=== PATIENT | female | born 1965 | race Caucasian/White ===

== ENCOUNTER 2016-09-27 14:41 | Observation (INO) ==
[2016-09-27] MEDS ORDERED: Aspirin 81 MG TAB.CHEW PO ONE (15:04)
[2016-09-27] MEDS ORDERED: 0.9 % Sodium Chloride 500 ML IVC ONE (15:04)
--- NOTE | 2016-09-27 15:12 | Emergency Department Note ---
START Narrative - START START: I examined this patient and my medical decision-making was reviewed with the VALET/PA/Advanced Practice Nurse/Resident Physician. I agree with the documented findings, disposition and treatment plan as described except to the extent set forth below. ED attending note: Patient seen with emergency medicine resident Dr. BERMUDEZ. Please see a copy of his note for details of the H&P, evaluation, management and disposition of this patient. We independently had eypt-[id number] contact with the patient Briefly: A 51-year-old female several months of chest pain worked up just yesterday with a nuclear stress test. Results are still pending. EKG shows no acute ischemic changes. Physical examination is benign. We will review the stress test results in the computer and repeat screening labs here. Disposition pending.
[2016-09-27] MEDS ORDERED: Nitroglycerin 25 MG/250 ML INFUS..BTL IVC SCH (15:15)
[2016-09-27] MEDS ORDERED: *HR* LORazepam 2 MG/ML VIAL IVP ONE (15:19)
--- NOTE | 2016-09-27 15:22 | Emergency Department Note ---
Disposition Clinical Impression: Unstable angina Chest pain Qualifiers: Chest pain type: unspecified Qualified Code(s): R07.9 - Chest pain, unspecified Disposition: Admitted As Inpatient Condition: Fair Time of Disposition: 17:19 Chest Pain HPI - General Chief Complaint: ED Chest Pain Stated Complaint: chest pains Time Seen by Provider: 09/27/16 14:58 Source: patient Vital Signs Reviewed: Yes Nursing Notes Reviewed: Yes - History of Present Illness HPI Narrative: This is a 51-year-old female who presents with chest pain times this morning unknown time of onset, patient fell back asleep after symptoms resolved. Unknown time of duration. Patient states it resolved on her own and she was able to go back to sleep. Patient states she is a prior history of recent chronic chest pain that has been under evaluation by Dr. Solis of cardiology and recently received a stress test 1 day ago. Patient has follow-up for stress test in 4 days area patient is directed to come to the ED if she had any change in her chest pain. Patient's chest pain changed with the addition of chest pressure and increased intensity that occurred today. Patient states that she has had about 20 outs of chest pain that lasted about 40 seconds. Patient states his radiation of her chest pressure and pain intermittently to her left arm and through to her back. She denies alcohol use, illicit drug use, patient quit smoking 7 months ago. Patient has a history of diabetes, hyperlipidemia, hypertension Severity scale (1-10): 8 - Related Data Home Medications Medication Instructions Recorded Confirmed Aspirin [Lo-Dose Aspirin EC] 81 mg PO DAILY 09/27/16 09/27/16 Atorvastatin [Lipitor] 40 mg PO HS 09/27/16 09/27/16 Esomeprazole Magnesium [Nexium] 40 mg PO DAILY 09/27/16 09/27/16 Insulin Degludec [Tresiba 134 unit SQ QAM 09/27/16 09/27/16 Flextouch U-100] Lisinopril-HCTZ 10-12.5 [Prinzide 1 tab PO DAILY 09/27/16 09/27/16 10-12.5] Metformin HCl [Glucophage] 1,000 mg PO DAILY 09/27/16 09/27/16 Paroxetine HCl [Paxil] 10 mg PO QPM 09/27/16 09/27/16 Pioglitazone [Actos] 45 mg PO DAILY 09/27/16 09/27/16 Allergies Allergy/AdvReac Type Severity Reaction Status Date / Time clarithromycin [From Biaxin] Allergy Swelling Verified 09/27/16 14:45 of Lip/Tongue/Throat Review of Systems: Patient denies fevers, chills, nausea, vomiting, diarrhea, lightheadedness, dizziness. Patient admits to facial flushing, and intermittent cough nonproductive All systems ED: reviewed and negative except as stated. Review of Systems: As Per HPI Chest Pain PMH - Past Medical History Medical history: Reports: diabetes, GERD, hyperlipidemia, hypertension Surgical history: Reports: cholecystectomy, hysterectomy, other Psychiatric history: Reports: no psych history RN PSYCH history: Reports: bilateral tubal ligation - Social History Smoking Status: Current every day smoker Alcohol use: Reports: none Drug use: Reports: none Physical Exam Vital Signs Temperature 98.1 F 09/27/16 14:43 Pulse Rate 99 09/27/16 14:43 Respiratory Rate 18 09/27/16 14:43 Blood Pressure 149/84 09/27/16 14:43 O2 Sat by Pulse Oximetry 98 09/27/16 14:43 Temperature 98.1 F 09/27/16 14:43 Pulse Rate 99 09/27/16 14:43 Respiratory Rate 18 09/27/16 14:43 Blood Pressure 149/84 09/27/16 14:43 O2 Sat by Pulse Oximetry 98 09/27/16 14:43 Oxygen Delivery Oxygen Delivery Room Air -General Appearance: Patient is a 50-year-old female who is alert and oriented times and in no acute distress. Patient is emotional and tearful throughout exam secondary to unknowns about chest pain -Neurological exam: Cranial nerves II-12 intact, no focal deficits observed, strength equal 5/5 bilaterally in upper and lower extremities, Negative loss of sensation - Head Head exam: atraumatic, normocephalic, normal inspection - Eye Eye exam: Present: normal appearance, PERRL, EOMI, negative for scleral icterus negative for conjunctival pallor - ENT ENT exam: normal exam, normal oropharynx, mucous membranes moist - Neck Neck exam: Present: normal inspection, full ROM, trachea midline, negative JVD - Chest Chest inspection: Present: Patient has bilateral equal rise and fall of chest wall. Anterior chest wall tender to palpation - Respiratory Respiratory exam: Clear to auscultation bilaterally without wheezes rales or rhonchi Cardiovascular Cardiovascular exam: Present: regular rate, normal rhythm, normal heart sounds, without murmurs rubs or gallops. - Abdominal Exam Abdominal exam: Present: soft, nondistended, Non-Tender light and deep palpation in all quadrants. Bowel sounds normoactive throughout all 4 quadrants. Negative for hyper or hyperresonance. - Extremities Exam Extremities exam: Present: normal inspection, full ROM, pulses equal regular bilaterally at the radials and dorsal pedal pulses no pitting edema or edema of lower extremities. - Back Exam Back exam: Present: normal inspection, full ROM. Absent: CVA tenderness (R), CVA tenderness (L) - Skin Skin exam: Present: warm, dry, intact, normal color - General General appearance: alert, in no apparent distress Course - Reevaluation(s) Reevaluation #1: Patient seen and examined. ACS workup initiated. Ativan given per patient's anxiety. Aspirin 325 mg, nitroglycerin ordered sublingual. We will reassess Time: 15:25 Reevaluation #2: Recheck patient's blood pressure currently 94/60. We will hold nitroglycerin. Patient states her pain has eased up. Time: 16:05 - Consultations Consultation #1: Dr. Montiel the hospitalist has accepted pt for admission Time: 17:17 Vital Signs Temperature 98.1 F 09/27/16 14:43 Pulse Rate 99 09/27/16 14:43 Respiratory Rate 18 09/27/16 14:43 Blood Pressure 149/84 09/27/16 14:43 O2 Sat by Pulse Oximetry 98 09/27/16 14:43 Temperature 98.2 F 09/27/16 18:34 Pulse Rate 74 09/27/16 18:34 Respiratory Rate 19 09/27/16 18:34 Blood Pressure 105/58 09/27/16 18:34 O2 Sat by Pulse Oximetry 97 09/27/16 18:34 Oxygen Delivery Oxygen Delivery Room Air Chest Pain - MDM Narrative Medical decision making narrative: Patient's history and current pain symptoms concerning for possible ACS/DC, PE, aortic dissection, pleurisy, esophageal rupture (less likely), other things like pneumonia some form of chest wall chondral or muscular abnormality. Patient has been treated for that in the past so also less likely at this time. Patient's heart score for but has negative chest x-ray, patient's labs were unremarkable and has a negative troponin. I discussed the patient's case with Dr. Solis of cardiology who stated she recommends admitting patient to medicine and they will see patient tomorrow. Patient did not receive nitroglycerin trial secondary to drop in blood pressure to 90 systolic. Patient's blood pressure on reexamination did come back up to 101/43. Patient's pain at last check was 2/10. Patient is otherwise doing well. She did receive Ativan for anxiety now resolved. Patient is also receive fluid bolus of 500 mL IV Patient was accepted for admission by hospitalist Dr. Montiel and patient understands and agrees to treatment plan for admission - Medical Records Medical records reviewed: Yes I reviewed the patient's medical records. Chest S 1 day ago shows a good EF of 73% and some perfusion defects - Lab Data Lab results reviewed: Yes I reviewed the patient's lab results. Lab results narrative: Short CBC 09/27/16 Range/Units 15:45 WBC 9.1 (4.3-11.1) K/mcL Hgb 12.0 (11.5-15.4) g/dL Hct 38.4 (35.3-44.9) % Plt Count 280 (140-400) K/mcL Neutrophils # 5.4 (1.6-8.9) K/mcL BMP 09/27/16 Range/Units 15:45 Sodium 138 (136-145) mEq/L Potassium 4.1 (3.5-4.5) mEq/L Chloride 105 (98-109) mEq/L Carbon Dioxide 23 (19-29) mEq/L BUN 20 (7-20) mg/dL Creatinine 0.80 (0.57-1.11) mg/dL Glucose 114 H (70-99) mg/dL Calcium 9.4 (8.6-10.8) mg/dL Cardiac Enzymes 09/27/16 Range/Units 15:45 Troponin I 0.00 (0-0.03) ng/mL Result diagrams: 09/27/16 15:45 09/27/16 15:45 Lab Results 09/27/16 09/27/16 09/27/16 Range/Units 15:45 15:45 15:45 WBC 9.1 (4.3-11.1) K/mcL RBC 4.41 (3.82-4.97) M/mcL Hgb 12.0 (11.5-15.4) g/dL Hct 38.4 (35.3-44.9) % MCV 87.1 (83.0-100.0) fL MCH 27.2 L (28.0-33.3) pg MCHC 31.3 L (31.6-35.5) g/dL RDW 13.9 (11.5-14.5) % Plt Count 280 (140-400) K/mcL MPV 11.1 (9.4-12.4) fL Immature Gran % 0.6 (0-4) % Seg Neutrophils % 59.0 % Lymphocytes % 25.2 % Monocytes % 13.1 % Eosinophils % 1.5 % Basophils % 0.6 % Neutrophils # 5.4 (1.6-8.9) K/mcL Lymphocytes # 2.3 (0.6-4.6) K/mcL Monocytes # 1.2 (0.0-1.3) K/mcL Eosinophils # 0.1 (0.0-0.6) K/mcL Basophils # 0.1 (0.0-0.2) K/mcL PT 10.7 (9.4-12.1) Seconds INR 1.0 APTT 26.5 (26.0-36.0) Seconds Sodium 138 (136-145) mEq/L Potassium 4.1 (3.5-4.5) mEq/L Chloride 105 (98-109) mEq/L Carbon Dioxide 23 (19-29) mEq/L BUN 20 (7-20) mg/dL Creatinine 0.80 (0.57-1.11) mg/dL Est GFR ( Amer) > 60 (> 60) Est GFR (Non-Af Amer) > 60 (> 60) BUN/Creatinine Ratio 25 (6-26) Glucose 114 H (70-99) mg/dL Calculated Osmolality 289 (280-300) Calcium 9.4 (8.6-10.8) mg/dL Troponin I (0-0.03) ng/mL 09/27/16 Range/Units 15:45 WBC (4.3-11.1) K/mcL RBC (3.82-4.97) M/mcL Hgb (11.5-15.4) g/dL Hct (35.3-44.9) % MCV (83.0-100.0) fL MCH (28.0-33.3) pg MCHC (31.6-35.5) g/dL RDW (11.5-14.5) % Plt Count (140-400) K/mcL MPV (9.4-12.4) fL Immature Gran % (0-4) % Seg Neutrophils % % Lymphocytes % % Monocytes % % Eosinophils % % Basophils % % Neutrophils # (1.6-8.9) K/mcL Lymphocytes # (0.6-4.6) K/mcL Monocytes # (0.0-1.3) K/mcL Eosinophils # (0.0-0.6) K/mcL Basophils # (0.0-0.2) K/mcL PT (9.4-12.1) Seconds INR APTT (26.0-36.0) Seconds Sodium (136-145) mEq/L Potassium (3.5-4.5) mEq/L Chloride (98-109) mEq/L Carbon Dioxide (19-29) mEq/L BUN (7-20) mg/dL Creatinine (0.57-1.11) mg/dL Est GFR ( Amer) (> 60) Est GFR (Non-Af Amer) (> 60) BUN/Creatinine Ratio (6-26) Glucose (70-99) mg/dL Calculated Osmolality (280-300) Calcium (8.6-10.8) mg/dL Troponin I 0.00 (0-0.03) ng/mL - Radiology Data Radiology results reviewed: Yes I reviewed the patient's radiology results. Chest X-Ray 09/27/16 15:05 IMPRESSION: No acute abnormality detected. D/ / Mahendra Walls MD / Mahendra Walls MD Interpreting Provider: Mahendra Walls MD - EKG Data EKG attestation: Yes I reviewed and interpreted this EKG. EKG results narrative: EKG taken at 09/27/2016 at 1450 hrs. shows sinus rhythm at a rate of 89 beats minute with no acute ST elevations in any leads, looks like mild ST depression in aVF and lead 2. Previous EKG for comparison dated 08/04/2016 shows sinus rhythm with no acute ST elevations or depressions and a leads waveform and lead to looks same as today's EKG Heart Score - Score History: Moderately Suspicious EKG: Normal Age: 45-65 Risk Factors: Equal/Greater than 3 risk factor or history of atherosclerotic disease Troponin: Less than normal limit HEART Score Total: 4
[2016-09-27 16:02] LABS: Basophils # 0.1 K/mcL (0.0-0.2); Basophils % 0.6 %; Eosinophils # 0.1 K/mcL (0.0-0.6); Eosinophils % 1.5 %; Hematocrit 38.4 % (35.3-44.9); Immature Granulocytes % 0.6 % (0-4); Lymphocytes # 2.3 K/mcL (0.6-4.6); Lymphocytes % 25.2 %; Mean Corpuscular HGB Conc 31.3 g/dL (31.6-35.5); Mean Corpuscular Hemoglobin 27.2 pg (28.0-33.3); Mean Corpuscular Volume 87.1 fL (83.0-100.0); Mean Platelet Volume 11.1 fL (9.4-12.4); Monocytes # 1.2 K/mcL (0.0-1.3); Monocytes % 13.1 %; Neutrophils # 5.4 K/mcL (1.6-8.9); Platelet Count 280 K/mcL (140-400); Red Blood Count 4.41 M/mcL (3.82-4.97); Red Cell Distribution Width 13.9 % (11.5-14.5)
[2016-09-27] MEDS ORDERED: Nitroglycerin 0.4 MG TAB.SUBL SL PRN ×2 (16:05→19:03)
[2016-09-27 16:08] LABS: Prothrombin Time 10.7 Seconds (9.4-12.1)
[2016-09-27 16:10] LABS: Activated Partial Thrombo Time 26.5 Seconds (26.0-36.0)
[2016-09-27 16:15] LABS: BUN/Creatinine Ratio 25 (6-26); Blood Urea Nitrogen 20 mg/dL (7-20); Calcium 9.4 mg/dL (8.6-10.8); Carbon Dioxide 23 mEq/L (19-29); Chloride 105 mEq/L (98-109); Glucose 114 mg/dL (70-99); Osmolality,Calculated 289 (280-300); Sodium 138 mEq/L (136-145); eGFR For African Americans > 60 (> 60); eGFR For Non-African Americans > 60 (> 60)
[2016-09-27 16:16] LABS: Potassium 4.1 mEq/L (3.5-4.5)
[2016-09-27] MEDS ORDERED: D5% in Water 1,000 ML IVC PRN (18:48)
[2016-09-27] MEDS ORDERED: *HR* Dextrose 50 % in Water (Syg) 50 ML SYRINGE IVP PRN (18:51)
[2016-09-27] MEDS ORDERED: Dextrose Gel 15 GM PO PRN ×2 (18:51)
[2016-09-27] MEDS ORDERED: Naloxone 0.4 MG/ML INJ IVP PRN (18:59)
[2016-09-27] MEDS ORDERED: Furosemide 20 MG TABLET PO PRN (19:05)
--- NOTE | 2016-09-27 19:14 | Internal Med History&Physical ---
<Dylan Phillips J - Last Filed: 09/27/16 19:10> Date of Encounter: 09/27/16 Time of Encounter: 19:11 Assessment and Plan (1) Chest pain Current visit: Yes Status: Acute Patient presented to the emergency department as afternoon with increasing midsternal chest pain and new chest pressure with radiation to the left arm. EKG in the ED was normal sinus rhythm and no ST elevation however did show mild ST depression in aVF and lead 2. Troponin was negative at 0.00. Was recently admitted for chest pain nuclear stress completed negative for ischemia. Discharged yesterday and told by doctor Will to return if cheat pain returned or increased in intensity or changed in character. Plan is to admit to observation Continuous telemetry Continuous SPO2 monitoring 2 L nasal cannula when necessary CPAP at night Trend troponins Nitroglycerin sublingual as needed for chest pain Lasix 20 mg daily, as her legs are swollen with pitting edema. Diabetic diet Cardiac consult Resume long-acting insulin and place on sliding scale insulin coverage DVT prophylaxis with Lovenox CBC, BMP in the a.m. Qualifiers: Chest pain type: unspecified Qualified Code(s): R07.9 - Chest pain, unspecified (2) Diabetes mellitus Current visit: Yes Status: Chronic Long-standing history of diabetes. Patient is not well controlled however she takes long-acting insulin and oral diuretics. We will discontinue antibiotics for now place on glargine at home dose. Start low-dose sliding scale insulin coverage before meals and at bedtime Accu-Cheks. Diabetic diet. 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 However at this time he is hemodynamically stable. Continue to monitor blood pressure. Continuous cardiac monitoring. Restart home dose of lisinopril-HCTZ Qualifiers: Hypertension type: essential hypertension Qualified Code(s): I10 - Essential (primary) hypertension (4) DVT prophylaxis Current visit: Yes Status: Acute Patient will be less mobile than her baseline throughout hospital stay. Risk for DVT; place on Lovenox 40mg sc Internal Medicine - H&P: HPI Chief complaint: chest pain Admitted From: Home Plans for Post Hospital Care: Home History of present illness: Ms. Palm is a 51 year old female with a PMH of DM, HLD, HTN, tubal ligation, hysterectomy and cholecystectomy. Presented to [facility] today with increasing chest pain and new midsternal chest pressure with radiation to the left arm. Patient was discharged from [facility] yesterday when she was admitted for chest pain and a thorough workup was completed. Most recent echo in 2016 indicated left ventricular hypertrophy, mild left ventricular diastolic dysfunction. Nuclear stress completed on 09-26-16 was negative for ischemia with an ejection fraction of 73%. Drs. Huff with her activity aid and instructed the patient upon discharge to return should she experience additional chest pain or chest pain increasing in intensity or pressure. Troponin obtained in the ED was negative at 0.00. CBC and BMP were both unremarkable, EKG showed normal sinus rhythm with no ST elevation, however did indicate some mild ST depression in aVF and lead 2. Cardiology is being consulted. The patient is being admitted for further workup and evaluation. Past Med Surg Social Fam HX - Past Medical History Medical history: diabetes, GERD, hyperlipidemia, hypertension Psychiatric history: no psych history - Past Surgical History Surgical History: cholecystectomy, hysterectomy, other - Social History Smoking Status: Current every day smoker Smokeless Tobacco Status: No Alcohol use: none Drug use: none - Family History Father Race: Family Member Ethnicity: Non- Living Status: Age at : 73 Hx Family Endocrine Disorder: Yes (DM) Internal Medicine - H&P: Meds Aspirin [Lo-Dose Aspirin EC] 81 mg PO DAILY 09/27/16 [History] Atorvastatin [Lipitor] 40 mg PO HS 09/27/16 [History] Esomeprazole Magnesium [Nexium] 40 mg PO DAILY 09/27/16 [History] Insulin Degludec [Tresiba Flextouch U-100] 134 unit SQ QAM 09/27/16 [History] Lisinopril-HCTZ 10-12.5 [Prinzide 10-12.5] 1 tab PO DAILY 09/27/16 [History] Metformin HCl [Glucophage] 1,000 mg PO DAILY 09/27/16 [History] Paroxetine HCl [Paxil] 10 mg PO QPM 09/27/16 [History] Pioglitazone [Actos] 45 mg PO DAILY 09/27/16 [History] Allergies clarithromycin [From Biaxin] Allergy (Verified 09/27/16 14:45) Swelling of Lip/Tongue/Throat All Systems PM: A 10-system review of systems was performed and is negative for pertinent findings except as documented above in the HPI. - Constitutional Constitutional: no chills, no fatigue, no fever(s), no lethargy, no night sweats , no weakness, no weight gain - EENT Eyes: no change in vision, no discharge, no pain, no photophobia Ears: no ear discharge, no ear pain, no tinnitus Nose, mouth and throat: no dysphagia, no nasal discharge, no neck pain, no sore throat - Cardiovascular Cardiovascular ROS IM: chest pain (noted with increasing intensity and pressure as well as radiation down left arm), no diaphoresis, no dyspnea, no lightheadedness, no palpitations, no syncope - Respiratory Respiratory: cough, dyspnea on exertion, no dyspnea, no wheezing, no excessive phlegm production - Gastrointestinal Gastrointestinal: no abdominal pain, no diarrhea, no hematemesis, no hematochezia, no melena, no nausea, no vomiting - Genitourinary Genitourinary: no change in urinary stream, no dysuria, no flank pain, no hematuria - Musculoskeletal Musculoskeletal ROS IM: no numbness, no tingling - Integumentary Integumentary IM: no rash, no unusual bruising - Neurological Neurological ROS: no confusion, no convulsions, no focal weakness, no numbness, no tingling, no tremor(s) - Hematologic/Lymphatic Hematologic/Lymphatic: no easy bruising - Constitutional Vitals: Temp Pulse Resp BP Pulse Ox 98.2 F 74 19 105/58 97 09/27/16 18:34 09/27/16 18:34 09/27/16 18:34 09/27/16 18:34 09/27/16 18:34 - Head Head exam: Present: atraumatic, normocephalic - Eye Eye exam: Present: PERRL, conjuntiva pink, sclera anicteric Pupils: Present: PERRL - Neck Neck exam general surgery: Present: supple, trachea midline. Absent: lymphadenopathy - Respiratory Respiratory exam: Present: CTAB. Absent: accessory muscle use, rales, rhonchi, wheezes - Cardiovascular Cardiovascular exam: Present: RRR, +S1, +S2. Absent: diastolic murmur, gallop, rubs, systolic murmur - GI/Abdominal GI/Abdominal exam: Present: normal bowel sounds, soft, no peritoneal signs. Absent: distended, tenderness - Extremities Exam Extremities exam: Present: warm, radial pulses palpable and symmetrical. Absent : calf tenderness, cyanotic, pedal edema - Expanded Lower Extremities Exam Lower Leg exam: Present: swelling (BILATERAL) Ankle exam: Present: swelling (BILATERAL) - Neurological Exam Neurological exam: Present: CN II-XII intact, oriented X3, no focal deficits. Absent: pronater drift, facial droop, speech deficit - Skin Skin exam: Present: dry, intact Internal Med - H&P Results - Labs CBC & Chem 7: 09/27/16 15:45 09/27/16 15:45 - Diagnostic Studies Other Images Additional comments: Notes from stress test completed on 09-26-16 reviewed. Stress test found no ischemia and a 70% EF <Raghavendra Montiel - Last Filed: 09/28/16 08:39> Date of Encounter: 09/28/16 Internal Medicine - H&P: HPI History of present illness: Ms. Palm is a 51 year old female All Systems PM: A 10-system review of systems was performed and is negative for pertinent findings except as documented above in the HPI. - Constitutional Vitals: Temp Pulse Resp BP Pulse Ox 97.9 F 73 15 118/78 99 09/28/16 07:47 09/28/16 07:47 09/28/16 07:47 09/28/16 07:47 09/28/16 07:47 Internal Med - H&P Results - Labs CBC & Chem 7: 09/28/16 04:07 09/28/16 04:07 Labs: Short CBC 09/28/16 Range/Units 04:07 WBC 8.9 (4.3-11.1) K/mcL Hgb 11.3 L (11.5-15.4) g/dL Hct 36.6 (35.3-44.9) % Plt Count 261 (140-400) K/mcL Neutrophils # 4.7 (1.6-8.9) K/mcL BMP 09/28/16 04:07 Sodium 141 Potassium 3.8 Chloride 106 Carbon Dioxide 28 BUN 20 Creatinine 0.88 Glucose 148 H Calcium 9.0 Cardiac Enzymes 09/27/16 09/28/16 Range/Units 22:15 04:07 Troponin I 0.01 0.00 (0-0.03) ng/mL Liver Function 09/28/16 Range/Units 04:07 Total Bilirubin < 0.3 (0.2-1.2) mg/dL AST 12 (5-34) Units/L ALT 14 (0-55) Units/L Alkaline Phosphatase 76 (38-126) Units/L Albumin 3.3 L (3.5-5.0) g/dL - Attending Attestation I examined this patient and my medical decision-making was reviewed with the SCANNING MANAGER. I agree with the documented findings, disposition and treatment plan as described .
[2016-09-27 19:46] LABS: Hemoglobin A1C 6.9 %
[2016-09-27] MEDS: Insulin LISPRO 300 UNITS/3 ML VIAL SQ SCH (20:46)
[2016-09-28 04:26] LABS: Basophils # 0.1 K/mcL (0.0-0.2); Basophils % 0.7 %; Eosinophils # 0.2 K/mcL (0.0-0.6); Eosinophils % 1.9 %; Hematocrit 36.6 % (35.3-44.9); Hemoglobin 11.3 g/dL (11.5-15.4); Immature Granulocytes % 0.7 % (0-4); Lymphocytes # 2.7 K/mcL (0.6-4.6); Mean Corpuscular HGB Conc 30.9 g/dL (31.6-35.5); Mean Corpuscular Hemoglobin 27.4 pg (28.0-33.3); Mean Corpuscular Volume 88.8 fL (83.0-100.0); Mean Platelet Volume 10.8 fL (9.4-12.4); Monocytes # 1.2 K/mcL (0.0-1.3); Neutrophils # 4.7 K/mcL (1.6-8.9); Platelet Count 261 K/mcL (140-400); Red Blood Count 4.12 M/mcL (3.82-4.97); Red Cell Distribution Width 14.1 % (11.5-14.5); Segmented Neutrophils % 52.7 %
[2016-09-28 04:45] LABS: Alanine Aminotransferase 14 Units/L (0-55); Albumin 3.3 g/dL (3.5-5.0); Albumin/Globulin Ratio 0.9 (1.1-2.2); Alkaline Phosphatase 76 Units/L (38-126); Aspartate Amino Transferase 12 Units/L (5-34); BUN/Creatinine Ratio 23 (6-26); Blood Urea Nitrogen 20 mg/dL (7-20); Carbon Dioxide 28 mEq/L (19-29); Chloride 106 mEq/L (98-109); Globulin 3.8 g/dL (2.4-3.5); Glucose 148 mg/dL (70-99); Osmolality,Calculated 297 (280-300); Potassium 3.8 mEq/L (3.5-4.5); Sodium 141 mEq/L (136-145); Total Protein 7.1 g/dL (6.0-8.3); eGFR For African Americans > 60 (> 60); eGFR For Non-African Americans > 60 (> 60)
[2016-09-28 04:46] LABS: Bilirubin,Total < 0.3 mg/dL (0.2-1.2)
--- NOTE | 2016-09-28 08:09 | Cardiology Consult Note ---
<Natasha Tinsley - Last Filed: 09/28/16 08:12> Date of Encounter: 09/28/16 Time of Encounter: 07:00 Assessment and Plan (1) Chest pain Current Visit: Yes Status: Acute Multiple ED/hospitalizations for chest discomfort. Troponin negative x3, no ischemic ECG changes noted. Atypical chest pain symptoms. Recent nuclear exercise stress test with low risk abnormality, likely due to artifact. Stress ECG negative. Risk factors for CAD include: DMII, HTN, HLD, obesity, and tobacco use. Discussed medical management vs LHC with possible PCI; she is leaning toward [facility]. Will further discuss with Dr. Solis. Alternatives, risks, and benefits discussed. Further recommendations to follow. Qualifiers: Chest pain type: unspecified Qualified Code(s): R07.9 - Chest pain, unspecified Discussion w patient/family: The assessment and plan as outlined above was discussed with the patient and/or family members who expressed understanding and agreement. All questions were answered. Thank you for involving us in the care of your patient. Please call with any questions. The patient will be discussed and reviewed with Dr. Solis; changes to be made accordingly. History of Present Illness Consult date: 09/28/16 Requesting physician: Dylan Phillips Consult reason: Chest pain Chief complaint: Chest pain History of present illness: Ms. Palm is a 51 year old female with PMHx significant for LATONIA ( compliant with CPAP), HTN, HLD, former tobacco use, and DMII who presented to the ED with recurrent chest discomfort. Reports chest discomfort is midsternal and describes as pressure. Pain typically last 20-30 seconds at a time and experiences several times a day. Discomfort occurs with rest, exertion, position change, and with coughing or taking deep breaths. Recent testing: Exercise nuclear 09/26/16: exercise ECG negative for ischemia; small, mild reversible apical anterior and apex perfusion defect likely artifact however ischemia cannot be excluded. Exercise nuclear 05/25/15: exercise ECG negative for ischemia, perfusion imaging negative for ischemia or infarct. Past Med Surg Social Fam HX - Past Medical History Attestation: Yes The following information was validated with the patient. Source: patient, old records reviewed Medical history: diabetes, GERD, hyperlipidemia, hypertension, other (LATONIA) Psychiatric history: no psych history - Past Surgical History Surgical History: cholecystectomy, hysterectomy, other - Social History Smoking Status: Former smoker Packs per day: 1 ppd x30 years, now uses e-cigarettes Smokeless Tobacco Status: No Alcohol use: none Drug use: none - Family History Father Race: Family Member Ethnicity: Non- Living Status: Age at : 73 Hx Family Endocrine Disorder: Yes (DM) Medications and Allergies Aspirin [Lo-Dose Aspirin EC] 81 mg PO DAILY 09/27/16 [History] Atorvastatin [Lipitor] 40 mg PO HS 09/27/16 [History] Esomeprazole Magnesium [Nexium] 40 mg PO DAILY 09/27/16 [History] Insulin Degludec [Tresiba Flextouch U-100] 134 unit SQ QAM 09/27/16 [History] Lisinopril-HCTZ 10-12.5 [Prinzide 10-12.5] 1 tab PO DAILY 09/27/16 [History] Metformin HCl [Glucophage] 1,000 mg PO DAILY 09/27/16 [History] Paroxetine HCl [Paxil] 10 mg PO QPM 09/27/16 [History] Pioglitazone [Actos] 45 mg PO DAILY 09/27/16 [History] Allergies clarithromycin [From Biaxin] Allergy (Verified 09/27/16 14:45) Swelling of Lip/Tongue/Throat All Systems Review: A 10-system review of systems was performed and is negative for pertinent findings except as documented above in the HPI. - Cardiovascular Cardiovascular: as per HPI Physical Examination Vital Signs, Last 4 Hours Temp Pulse Resp BP Pulse Ox 09/28/16 07:47 97.9 F 73 15 118/78 99 09/28/16 05:27 16 122/84 97 General: Conversant, No Apparent Distress HEENT: Atraumatic, Normocephaly, Mucus Membranes Moist Neck: No JVD, Normal carotid pulses Cardiac: Reg Rate and Rhythm, Normal S1 and S2, No Murmur Lungs: Normal Breath Sounds, No Wheeze, Rales, Rhonchi Neuro: Alert and responsive, No focal deficits noted Abdomen: Soft, Non-Tender Skin: No rashes noted on visualized skin Musculoskeletal: No Chest Wall Tenderness Extremities: No Clubbing, No Cyanosis, No Edema, Normal Pulses Results 09/28/16 04:07 09/28/16 04:07 Lab Results 09/27/16 09/28/16 09/28/16 22:15 04:07 04:07 WBC 8.9 Hgb 11.3 L Hct 36.6 Plt Count 261 Sodium 141 Potassium 3.8 Chloride 106 Carbon Dioxide 28 BUN 20 Creatinine 0.88 Glucose 148 H Calcium 9.0 Total Bilirubin < 0.3 AST 12 ALT 14 Alkaline Phosphatase 76 Troponin I 0.01 09/28/16 04:07 WBC Hgb Hct Plt Count Sodium Potassium Chloride Carbon Dioxide BUN Creatinine Glucose Calcium Total Bilirubin AST ALT Alkaline Phosphatase Troponin I 0.00 Active Medications Aspirin (Aspirin Ec) 81 mg PO DAILY DORA Stop: 03/30/17 09:01 Atorvastatin Calcium (Lipitor) 40 mg PO HS DORA Stop: 03/29/17 21:01 Last Admin: 09/27/16 20:26 Dose: 40 mg Enoxaparin Sodium (Lovenox) 40 mg SQ 0600 [facility] PRN Reason: Protocol Stop: 03/30/17 06:01 Furosemide (Lasix) 20 mg PO DAILY PRN PRN Reason: Edema Stop: 03/29/17 19:06 Lisinopril/HCTZ (Prinzide 10-12.5) 1 each PO DAILY [facility] Stop: 03/30/17 09:01 Insulin Detemir (Levemir) 60 unit SQ DAILY DORA Stop: 03/30/17 09:01 Insulin Detemir (Levemir) 60 unit SQ DAILY [facility] Stop: 03/30/17 09:01 Insulin Human Lispro (Humalog) 0 units SQ TIDAC [facility] PRN Reason: Protocol Stop: 03/30/17 07:31 Insulin Human Lispro (Humalog) 0 units SQ HS [facility] PRN Reason: Protocol Stop: 03/29/17 21:01 Last Admin: 09/27/16 20:46 Dose: Not Given Naloxone HCl (Narcan) 0.4 mg IVP Q2MIN PRN PRN Reason: Opioid Reversal Stop: 03/29/17 19:00 Nitroglycerin (Nitroglycerin) 0.4 mg SL Q5MIN PRN PRN Reason: Chest Pain Stop: 03/29/17 16:06 Nitroglycerin (Nitroglycerin) 0.4 mg SL Q5MIN PRN PRN Reason: Chest Pain Stop: 03/29/17 19:04 Omeprazole (Prilosec) 40 mg PO 0630 [facility] Stop: 02/12/18 06:31 Last Admin: 09/28/16 05:56 Dose: 40 mg Paroxetine HCl (Paxil) 10 mg PO QPM [facility] Stop: 03/29/17 20:36 Last Admin: 09/27/16 20:47 Dose: 10 mg Pharmacy Profile Note (Patient Taking Own Medication) 1 each SQ QAM [facility] Stop: 03/30/17 09:01 - Imaging and Cardiology Stress Test: report reviewed - EKG Interpretation EKG results cardiology: personally reviewed Consult Discharge Plan - Plan Referrals: Kalpana Frank MD [Primary Care Provider] - <ElleyordanKassandra - Last Filed: 09/28/16 09:27> Date of Encounter: 09/28/16 Assessment and Plan Discussion w patient/family: The assessment and plan as outlined above was discussed with the patient and/or family members who expressed understanding and agreement. All questions were answered. Thank you for involving us in the care of your patient. Please call with any questions. History of Present Illness History of present illness: Ms. Palm is a 51 year old female All Systems Review: A 10-system review of systems was performed and is negative for pertinent findings except as documented above in the HPI. Physical Examination Vital Signs, Last 4 Hours Temp Pulse Resp BP Pulse Ox 09/28/16 07:47 97.9 F 73 15 118/78 99 09/28/16 05:27 16 122/84 97 Results 09/28/16 04:07 09/28/16 04:07 Lab Results 09/27/16 09/28/16 09/28/16 22:15 04:07 04:07 WBC 8.9 Hgb 11.3 L Hct 36.6 Plt Count 261 Sodium 141 Potassium 3.8 Chloride 106 Carbon Dioxide 28 BUN 20 Creatinine 0.88 Glucose 148 H Calcium 9.0 Total Bilirubin < 0.3 AST 12 ALT 14 Alkaline Phosphatase 76 Troponin I 0.01 09/28/16 04:07 WBC Hgb Hct Plt Count Sodium Potassium Chloride Carbon Dioxide BUN Creatinine Glucose Calcium Total Bilirubin AST ALT Alkaline Phosphatase Troponin I 0.00 - Attending Attestation I examined this patient and my medical decision-making was reviewed with the Resident Physician. I agree with the documented findings, disposition and treatment plan as described except to the extent set forth below. Ms. Palm presents with atypical chest pain, negative troponins and no acute ECG changes. She recently had a stress test which demonstrated the possibility of mild reversible ischemia in the apical anterior wall and apex. Risk factors include female gender, post menopausal and diabetes, HTN, HPL and former tobacco use. We discussed consideration of LHC. The R/B/A of the procedure were discussed with the patient who expressed understanding. She has decided to proceed. She denies any upcoming elective procedures or history of bleeding events. Her renal function is normal. Will plan for Thursday.
[2016-09-28] MEDS: *HR* Enoxaparin 40 MG/0.4 ML SYRINGE SQ SCH (08:22)
[2016-09-28] MEDS: Aspirin Enteric Coated 81 MG Tablet PO SCH (08:22)
[2016-09-28] MEDS: TRESIBA SQ SCH (08:23)
[2016-09-28] MEDS: Insulin LISPRO 300 UNITS/3 ML VIAL SQ SCH ×4 (08:24→21:13)
[2016-09-28] MEDS: Insulin DETEMIR 100 UNIT/ML X5UNITS SQ SCH ×2 (08:26→08:27)
[2016-09-28] MEDS ORDERED: Insulin DETEMIR 100 UNIT/ML X5UNITS SQ SCH (09:00)
[2016-09-28] MEDS: Acetaminophen 325 MG TABLET PO PRN (12:36)
--- NOTE | 2016-09-28 15:35 | Internal Med Progress Note ---
Date of Encounter: 09/28/16 Time of Encounter: 14:00 - Assessment and plan (1) Chest pain Current Visit: No Status: Acute Assessment and plan: Patient currently denies pain but states that she has had pain and pressure throughout the day. Troponins negative 3. Patient is very scared because she had a close family member of a heart attack at a young age-she would not elaborate. Cardiology is on board, plan is for left heart catheter tomorrow. Patient is very anxious, will add anxiolytics and monitor her overnight. Morphine for chest pain. Chest x-ray negative. Stress test 2 days ago with low risk abnormality with ejection fraction of 73%. ITS Impressions Chest X-Ray 09/27/16 15:05 IMPRESSION: No acute abnormality detected. D/ / Mahendra Walls MD / Mahendra Walls MD Interpreting Provider: Mahendra Walls MD Exercise Nuclear Stress Date of Study: 09/26/2016 Impression: Exercise ECG is negative for ischemia. Gated EF = 73%. Small size, mild intensity, mildy reversible apical anterior and apex perfusion defect. Although I suspect this is probably artifact, ischemia cannot be excluded given mild reversibility. Qualifiers: Chest pain type: unspecified Qualified Code(s): R07.9 - Chest pain, unspecified (2) HTN (hypertension) Current Visit: Yes Status: Chronic Assessment and plan: Controlled, will continue to trend and adjust medications as indicated. Qualifiers: Hypertension type: essential hypertension Qualified Code(s): I10 - Essential (primary) hypertension (3) HLD (hyperlipidemia) Current Visit: No Status: Chronic Assessment and plan: No recent lipid panel, will check with am labs (4) Diabetes mellitus Current Visit: Yes Status: Chronic Assessment and plan: Controlled almost an A1c of 6.9%. Continue sliding scale while admitted. (5) Morbid obesity with BMI of 40.0-44.9, adult Current Visit: Yes Status: Chronic (6) DVT prophylaxis Current Visit: Yes Status: Acute Assessment and plan: Subcutaneous Lovenox - Subjective Interval history: Patient seen and examined. On examination, patient pacing about her room. She currently denies pain and states that she is tired and nervous. She states that she is continuing to have intermittent bouts of chest pressure and she is scared. - Constitutional Vitals: Temp Pulse Resp BP Pulse Ox 98.2 F 68 16 101/61 96 09/28/16 11:13 09/28/16 11:13 09/28/16 11:13 09/28/16 11:13 09/28/16 11:13 General appearance: Present: A&O X 3, morbidly obese, pleasant, no acute distress, answers questions appropriately - Head Head exam: Present: atraumatic, normocephalic - Eye Eye exam: Present: PERRL, conjuntiva pink, sclera anicteric Pupils: Present: PERRL - Neck Neck exam general surgery: Present: supple, trachea midline. Absent: lymphadenopathy - Respiratory Respiratory exam: Present: decreased breath sounds. Absent: accessory muscle use, rales, respiratory distress, rhonchi, wheezes - Cardiovascular Cardiovascular exam: Present: RRR, +S1, +S2. Absent: diastolic murmur, gallop, rubs, systolic murmur - GI/Abdominal GI/Abdominal exam: Present: normal bowel sounds, soft, no peritoneal signs. Absent: distended, tenderness - Extremities Exam Extremities exam: Present: warm, radial pulses palpable and symmetrical. Absent : calf tenderness, cyanotic, pedal edema - Neurological Exam Neurological exam: Present: alert, CN II-XII intact, normal gait, oriented X3, no focal deficits, strengths equal and symetr throughout. Absent: pronater drift, facial droop, speech deficit - Psychiatric Psychiatric exam: Present: anxious - Skin Skin exam: Present: dry, intact, pallor, warm Internal Medicine: Result - Labs CBC & Chem 7: 09/28/16 04:07 09/28/16 04:07 Labs: Short CBC 09/28/16 Range/Units 04:07 WBC 8.9 (4.3-11.1) K/mcL Hgb 11.3 L (11.5-15.4) g/dL Hct 36.6 (35.3-44.9) % Plt Count 261 (140-400) K/mcL Neutrophils # 4.7 (1.6-8.9) K/mcL BMP 09/28/16 04:07 Sodium 141 Potassium 3.8 Chloride 106 Carbon Dioxide 28 BUN 20 Creatinine 0.88 Glucose 148 H Calcium 9.0 Cardiac Enzymes 09/27/16 09/28/16 Range/Units 22:15 04:07 Troponin I 0.01 0.00 (0-0.03) ng/mL Liver Function 09/28/16 Range/Units 04:07 Total Bilirubin < 0.3 (0.2-1.2) mg/dL AST 12 (5-34) Units/L ALT 14 (0-55) Units/L Alkaline Phosphatase 76 (38-126) Units/L Albumin 3.3 L (3.5-5.0) g/dL - ABG Interpretation ABG results: PT/INR, D-dimer PT 10.7 Seconds (9.4-12.1) 09/27/16 15:45 Consult Discharge Plan - Plan Referrals: Kalpana Frank MD [Primary Care Provider] -
[2016-09-28] MEDS ORDERED: Ondansetron 4 MG/2 ML VIAL IVP PRN (15:42)
[2016-09-28] MEDS ORDERED: *HR* Morphine 2 MG/ML SYRINGE IVP PRN (15:42)
[2016-09-28] MEDS ORDERED: *HR* LORazepam 2 MG/ML VIAL IVP PRN (15:44)
--- NOTE | 2016-09-28 17:38 | Electrocardiograph Report ---
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
[2016-09-29 04:51] LABS: Prothrombin Time 10.7 Seconds (9.4-12.1)
[2016-09-29 05:15] LABS: Alanine Aminotransferase 15 Units/L (0-55); Albumin 3.3 g/dL (3.5-5.0); Albumin/Globulin Ratio 0.9 (1.1-2.2); Alkaline Phosphatase 74 Units/L (38-126); Aspartate Amino Transferase 13 Units/L (5-34); BUN/Creatinine Ratio 25 (6-26); Blood Urea Nitrogen 21 mg/dL (7-20); Calcium 9.3 mg/dL (8.6-10.8); Carbon Dioxide 28 mEq/L (19-29); Chloride 106 mEq/L (98-109); Globulin 3.7 g/dL (2.4-3.5); Glucose 108 mg/dL (70-99); Osmolality,Calculated 296 (280-300); Potassium 4.1 mEq/L (3.5-4.5); Sodium 141 mEq/L (136-145); eGFR For African Americans > 60 (> 60); eGFR For Non-African Americans > 60 (> 60)
[2016-09-29 05:18] LABS: Bilirubin,Total < 0.3 mg/dL (0.2-1.2)
[2016-09-29 06:03] LABS: Basophils # 0.1 K/mcL (0.0-0.2); Basophils % 0.6 %; Eosinophils # 0.2 K/mcL (0.0-0.6); Eosinophils % 1.8 %; Hematocrit 37.9 % (35.3-44.9); Hemoglobin 11.5 g/dL (11.5-15.4); Immature Granulocytes % 0.6 % (0-4); Lymphocytes # 2.8 K/mcL (0.6-4.6); Lymphocytes % 30.1 %; Mean Corpuscular HGB Conc 30.3 g/dL (31.6-35.5); Mean Corpuscular Hemoglobin 26.9 pg (28.0-33.3); Mean Corpuscular Volume 88.8 fL (83.0-100.0); Mean Platelet Volume 11.2 fL (9.4-12.4); Monocytes # 1.4 K/mcL (0.0-1.3); Monocytes % 14.3 %; Platelet Count 277 K/mcL (140-400); Red Blood Count 4.27 M/mcL (3.82-4.97); Segmented Neutrophils % 52.6 %
[2016-09-29] MEDS: *HR* Enoxaparin 40 MG/0.4 ML SYRINGE SQ SCH (06:07)
[2016-09-29] MEDS: Acetaminophen 325 MG TABLET PO PRN ×2 (06:10→11:27)
[2016-09-29] MEDS: Insulin LISPRO 300 UNITS/3 ML VIAL SQ SCH ×2 (07:30→12:17)
[2016-09-29] MEDS: Insulin DETEMIR 100 UNIT/ML X5UNITS SQ SCH ×2 (07:37)
[2016-09-29] MEDS: TRESIBA SQ SCH (07:43)
[2016-09-29] MEDS: Aspirin Enteric Coated 81 MG Tablet PO SCH (07:43)
[2016-09-29] MEDS ORDERED: Verapamil 5 MG/2 ML VIAL ONE (08:58)
--- NOTE | 2016-09-29 08:58 | Pre-Sedation Evaluation ---
Pre-sedation evaluation - Pre-sedation checklist Date of procedure: 09/29/16 Procedure: [facility] Recent Vitals: Last Vital Signs Temp 97.7 F 09/29/16 06:57 Pulse 70 09/29/16 06:57 Resp 17 09/29/16 06:57 BP 109/62 09/29/16 06:57 Pulse Ox 96 09/29/16 06:57 H&P (including ROS) documented in medical record: Yes Previous reaction to sedatives/anesthetics: No Dietary Status: NPO after Midnight Airway Assessment: Patient can open mouth completely, TMJ function normal ASA Classification *see protocol: CLASS II-Mild systemic disease Plan of Care: Pt appropriate candidate for procedure/moderate/conscious sedation , Risks/benefits of procedure/sedation discussed w/ patient/family
[2016-09-29] MEDS ORDERED: Heparin 1,000 UNITS/500 mL NS 500 ML ONE (08:59)
[2016-09-29] MEDS ORDERED: *HR* Heparin 10,000 UNIT/10 ML VIAL ONE (08:59)
[2016-09-29] MEDS ORDERED: 0.9 % Sodium Chloride 1,000 ML ONE ×2 (08:59→09:00)
[2016-09-29] MEDS ORDERED: Nitroglycerin 1,000 MCG/10 ML VIAL IV ONE (08:59)
[2016-09-29] MEDS ORDERED: *HR* Midazolam HCl 2 MG/2 ML VIAL ONE (09:07)
[2016-09-29] MEDS ORDERED: *HR* FentaNYL (PF) 100 MCG/2 ML VIAL ONE (09:07)
--- NOTE | 2016-09-29 09:43 | Event Note ---
Date of Encounter: 09/29/16 Time of Encounter: 09:43 - Cardiology Event Note *er discussion with , [facility] with no intervention needed. Cardiology will sign off and will follow in outpatient setting. Follow up set.
--- NOTE | 2016-09-29 09:55 | Invasive Diagnostic Lab Proc ---
Name: Genesis Palm Date of Study: 09/29/2016 Date: 1965 Ht: 64.1in Medical Record#: [id number] Age: 51 Wt: 249.12lb Gender: Female BSA: 2.15 Order #: [id number] BMI: 42.64 Physicians Procedure Physician: Palmer Ferrell MD, [facility] Referring MD: Referring MD: Staff Name Position Time In CharlotteTyrese smith RN Monitor 09:11 AM Alpa Lassiter RN Monitor 09:11 AM Alice Morgan RN Pearl Stringer 09:11 AM Teresa Genao RN Pearl Stringer 09:11 AM Keri Hughes RT Scrub 09:11 AM Indications Indication Unstable Angina Procedures Performed Procedure L HRT ARTERY/VENTRICLE ANGIO Pre-Procedure Checklist Informed consent is complete signed and on chart. H&P is on chart. ID band is on and ID verified with patient. Patient NPO for procedure The procedure was described for the patient and questions were answered. ECG is on chart. Plan of Care Patient will tolerate the procedure without complications. Adequate level of comfort will be maintained. Hemodynamics will remain stable Patient will recover from procedure without complications. Respiratory function will be maintained. Cardiac rhythm will remain stable. Patient temperature will be maintained. Patient and/or family have verbalized understanding of the procedure. Patient Education Chief Complaint/Reason for Test: Cardiac Cath Developmental Category: Adult (18-64 years) Developmentally Appropriate for Age: Yes Learning Barriers: None Education Needs: Procedure Education Method: Verbal Information Taught: Cardiac Cath Educational Evaluation: Able to repeat information Intravenous Access Time IV Size Location DC'd Fluid/Drip Rate Units RN 0.9NaCl Allergies NKDA BIAXIN,PREDNISONE BIXAM clarithromycin prednisone Vital Signs Time BP (mmHg) HR (bpm) O2 Sat. RR (bpm) LOC 09:14 AM / % 5 = Fully awake and oriented or at pre-proc level 09:15 AM / % 4 = Oriented but drowsy 09:16 AM 141 / 63 67 100 % 17 09:21 AM 132 / 67 65 100 % 17 09:25 AM 119 / 63 62 99 % 13 09:30 AM 117 / 55 67 97 % 17 09:36 AM 117 / 61 74 98 % 25 Procedural Medications Time Medication Dose Units Method Given By 09:14 AM Oxygen 2 L/min nasal cannula Alice Morgan RN 09:18 AM Versed 2 mg Intravenous Alice Morgan RN 09:19 AM Fentanyl 50 mcg Intravenous Alice Morgan RN 09:25 AM Lidocaine 2% 0.5 ml Subcutaneous Palmer Ferrell MD, [facility] 09:28 AM Heparin 4000 units Nitroglycerin 200 mcg Verapamil 2.5 mg Intraarterial Palmer Ferrell MD, [facility] ASA Classification: CLASS II- Mild systemic disease (i.e. well-controlled diabetes, hypertension, asthma, cigarette smoking) Luis Enrique Score Preprocedure Postprocedure Activity 2- Moves 4 extremities sustained head lift Activity 2- Moves 4 extremities sustained head lift Circulation 2- SBP +/= 20 points of pre-anesthetic level Circulation 2- SBP +/= 20 points of pre-anesthetic level Consciousness 2- Awake and alert oriented x 3 Consciousness 2- Awake and alert oriented x 3 O2 Saturation 2- Able to maintain O2 satruation of 92% on room air O2 Saturation 2- Able to maintain O2 satruation of 92% on room air Respiratory 2- Able to deep breathe and cough well Respiratory 2- Able to deep breathe and cough well Total Score 10 Total Score 10 Contrast Agent: Isovue Diagnostic Contrast: 46 ml Total Contrast: 46 ml Fluoro Dose: 159 mGy Procedure Log Time Note Enter By 09:07 AM Pt arrived to lab instructor 2 [facility] 09[facility]10 [facility] Physican paged/called 09:08. [email or web address] 09:08 AM CathStat 09:10 AM [facility] and [facility]k [facility] AM Sign in performed according to hospital policy. [facility] Procedure start 09:10 jcallihan 09:11 AM Tyrese Porter RN Position: Monitor Time in: 09:11 [email or web address] 09:11 AM Alpa Lassiter RN Position: Monitor Time in: 09:11 [email or web address] 09:11 AM Alice Morgna RN Position: Pearl Stringer Time in: 09:11 [email or web address] 09:11 AM Teresa Genao RN Position: Pearl Stringer Time in: 09:11 [email or web address] 09:11 AM Keri Hughes RT Position: Scrub Time in: 09:11 jcallihan 09:11 AM Patient charges- Angio tray pack, Navilyst 3mm J, Pulse Oximetry and ACIST tubing and transducer [facility] 09:12 AM Case Delayed No, inpatient [facility] 09:12 AM Hair removed from procedure site in procedure lab using clippers. Right wrist, right groin prepped with Chloraprep by Alice Morgan RN, then patient was draped. Skin intact. [facility]:13 AM ASA Class CLASS II- Mild systemic disease (i.e. well-controlled diabetes, hypertension, asthma, cigarette smoking) [facility]:14 AM Time: 09:14 Oxygen on at 2 L/min per nasal cannula by Alice Morgan RN [facility] AM Time: 09:14 Patient comfortable and pain free: Yes [facility] : Vitals capture started with the following parameters, Patient=Adult, Interval=5 min, Initial Ycfzfwzd=001 mmHg, Deflation Rate=5 mmHg, Cuff placed on Left Arm 09:15 AM Time: :14LOC: 5 = Fully awake and oriented or at pre-proc level [facility]:16 AM HR=67 bpm, XMLG=224/63 mmhg, PbH5=109.0 %, Resp=17 B/min, Comment=nsr 09:19 AM Time: 09:18 Versed 2 mg Intravenous Given by Alice Morgan RN [facility] AM Time: 09:19 Fentanyl 50 mcg Intravenous Given by Alice Morgan RN [facility] :21 AM HR=65 bpm, CKBC=521/67 mmhg, RbY6=133.0 %, Resp=17 B/min, Comment=nsr 09: AM Clinical Presentation: Unstable angina :25 AM HR=62 bpm, BYSF=080/63 mmhg, SpO2=99.0 %, Resp=13 B/min, Comment=nsr 09:25 AM Time out performed according to hospital policy : AM Time: : 0.5 ml Lidocaine 2% to right radial Subcutaneous [facility], [facility] : AM Access obtained by percutaneous puncture. 6Fr 11cm Terumo Glidesheath sheath placed in right Radial artery. [id number] [facility] : AM Time: 09:28 Patient given 4,000 units Heparin, 200 mcg Nitroglycerin, and 2.5 mg Verapamil Intraarterial by Palmer Ferrell MD, FACC jcallihan 09:28 AM 5Fr TIG catheter inserted over the wire DN jcallihan 09:29 AM J Wire removed jcallihan 09:29 AM Time: 09:29 Patient comfortable and pain free: Yes [email or web address] 09:30 AM Time: 09:30LOC: 4 = Oriented but drowsy jcallihan 09:30 AM Recorded Pressure: Ao, HR=67, Condition=Condition 1 (Aorta) Ao 117/93/104 09:30 AM HR=67 bpm, FANP=936/55 mmhg, SpO2=97.0 %, Resp=17 B/min, Comment=nsr 09:31 AM Coronary Dominance: right [email or web address] 09:31 AM LCA angiography performed in multiple views. [email or web address] 09:32 AM Catheter repostitioned to RCA jcallihan 09:32 AM Recorded Pressure: Ao, HR=67, Condition=Condition 1 (Aorta) Ao 113/86/99 09:32 AM RCA angiography performed in multiple views. [email or web address] 09:32 AM Catheter removed jcallihan 09:32 AM 5Fr Pigtail catheter inserted over the wire [facility] jcallihan 09:32 AM Catheter selectively placed in left ventricle jcallihan 09:33 AM Recorded Pressure: LV, HR=72, Condition=Condition 1 (Left Ventricle) LV 133/15/30 09:34 AM Bolus angiogram of left Ventricle complete: 10 ml/sec for a total of 20 mls jcallihan 09:34 AM Recorded Pressure: LV, Ao, HR=72, Condition=Condition 1 (Left Ventricle) LV 131/19/34, (Aorta) Ao 129/66/102 09:35 AM Catheter removed jcallihan 09:35 AM Wire removed [email or web address] 09:35 AM Procedure completed at 09:35 [email or web address] 09:36 AM HR=74 bpm, SSPB=573/61 mmhg, SpO2=98.0 %, Resp=25 B/min 09:36 AM Sign out completed: Radiation Dose 159 mGy Fluoro Time: 0.9 Isovue 370 - 200ml contrast 46 ml given by Palmer Ferrell MD, FACC. Complications: NoneCardiac Rehab Consult needed: NoConfirmed administered medications: Yes jcallihan 09:37 AM Isovue 370 - 200ml,1 Bottle(s) used. [email or web address] 09:37 AM Arterial sheath pulled, Vasc Band closure device used and was Successful S/N. jcallihan 09:37 AM 11 ml air in Vasc Band. jcallihan 09:37 AM Post ECG NSR jcallihan 09:37 AM Post Blood Pressure 117/61 jcallihan 09:37 AM 09:37 Post Pulses Rt Radial 1+ [email or web address] 09:38 AM Information taught Cardiac Cath and Vasc Band jcallihan 09:38 AM Education needs Procedure, Plan of Care, and Responsibilities of Patient in Care jcallihan 09:38 AM Learning barriers :None jcallihan 09:38 AM Education Methods Verbal jcallihan 09:38 AM Education evaluation Able to repeat information jcallihan 09:38 AM Site status No bleeding/hematoma - Rt Wrist as reported by Keri Hughes RT at 09:38 jcallihan 09:39 AM Plavix, Effient or Brilinta given No jcallihan 09:39 AM Delay to floor No jcallihan 09:40 AM Pt's family not present at this time. jcallihan 09:41 AM Complications: None jcallihan 09:41 AM Fluoro Time: 0.9 jcallihan 09:41 AM Isovue 370 - 200ml contrast 46 ml given by Palmer Ferrell MD, [facility]. jcallihan 09:41 AM Radiation Dose 159 mGy jcallihan 09:43 AM Lesion found in Proximal RCA. Pre Stenosis: 15 Pre KERVIN Flow: [email or web address] 09:43 AM Right Coronary, Right Posterior Descending Arteries with Right Posterolateral and Acute Marginal branches with 15 % stenosis. If graft is supplying this area, 0 % stenosis jcallihan 09:45 AM Report given to Melody KENT Pt taken to Room #48. 09:44 [email or web address] 09:47 AM Patient out of room: 09:47 [email or web address] Complications Complication None None Hemodynamics Pressures Site Systolic/A Wave Diastolic/V Wave Mean AO 117 93 104 AO 113 86 99 LV 133 15 30 LV 131 19 34 AO 129 66 102 Post Procedure Information Blood Pressure: 117/61 mmHg Rhythm: NSR Post procedural instructions were given Closure Device Time Device Success/Fail 09/29/2016 9:43:00 AM Mechanical Compression Successful Site Checks Time Location Status Staff Sheath In? Note 09:38 AM Rt Wrist No bleeding/hematoma Keri Hughes RT Pulses Time Site Pre-Procedure Post-Procedure Note Bilateral DP & PT 2+ Bilateral radial 2+ 9:37:00 AM Rt Radial 1+ Updated by Tyrese Porter RN on 09/29/2016 9:49:07 AM electronically signed on 09/29/2016 9:49:39 AM with status of Final
--- NOTE | 2016-09-29 10:07 | Invasive Diagnostic Lab ---
Name: Genesis Palm Date of Study: 09/29/2016 Date: 1965 Ht: 162.8 cm /64.1 in Medical Record#: [id number] Age: 51 Wt: 113. kg / 249.12 lb Account/Order#: [id number] Gender: Female BSA: 2.15 Order #: [id number] Fluoro Dose: 159 mGy BMI: 42.64 Procedure Physician: Palmer Ferrell MD, FACC Referring MD: Referring MD: Procedures Performed: Transradial LEFT HEART CATH Indications: Unstable Angina Impressions: There is minimal two vessel coronary artery disease. The left ventricle is normal and has normal contractility EF 60% Recommendations: Optimal medical therapy of patient's disease. Aggressive risk factor modification. History/Risk Factors: Gerd CP Diabetes Hypertension Dyslipidemia Procedure Access obtained in the right Radial artery by percutaneous puncture Complications: None, None Contrast: Isovue 46ml Closure Device: Mechanical Compression Hemodynamics: Pressures Site Systolic/ A Wave Diastolic/ V Wave End Diastolic/ Mean HR AO 117 93 104 67 AO 113 86 99 67 LV 133 15 30 72 LV 131 19 34 71 AO 129 66 102 72 LV Ventriculography Ejection Method: LV Gram Ejection Fraction: 60% Wall Motion: GEORGE Anterobasal Normal Anterolateral Normal Apical: Normal Inferoapical Normal Inferobasal Normal Coronary Dominance: right Lesion Findings/Interventions * Left Main Coronary Artery The LMCA is angiographically free of disease. * Left Anterior Descending The LAD has mid 20% stenosis The 1st Diagonal is angiographically free of disease. * Circumflex The Circumflex is angiographically free of disease. The 1st Marginal is angiographically free of disease. * Right Coronary Artery There is a 15% stenosis in the Proximal RCA. Updated by Tyrese Porter RN on 09/29/2016 9:48:13 AM Palmer Ferrell MD, FACC electronically signed on 09/29/2016 9:59:48 AM with status of Final
[2016-09-29 11:04] VITALS: BP 102/63
--- NOTE | 2016-09-29 13:56 | Discharge Summary ---
Date of Encounter: 09/29/16 Time of Encounter: 11:30 - Discharge Diagnosis (1) Chest pain Priority: Primary Status: Resolved Comments: Patient denied chest pain on day of discharge. Left heart catheter without intervention Qualifiers: Chest pain type: unspecified Qualified Code(s): R07.9 - Chest pain, unspecified (2) HTN (hypertension) Priority: Secondary Status: Chronic Comments: Controlled, follow-up outpatient Qualifiers: Hypertension type: essential hypertension Qualified Code(s): I10 - Essential (primary) hypertension (3) HLD (hyperlipidemia) Priority: Secondary Status: Chronic Comments: On a statin, follow-up outpatient (4) Diabetes mellitus Priority: Secondary Status: Chronic Comments: Controlled almost an A1c of 6.9%. Follow-up outpatient (5) Morbid obesity with BMI of 40.0-44.9, adult Priority: Secondary Status: Chronic (6) DVT prophylaxis Priority: Primary Status: Acute Comments: Subcutaneous Lovenox while admitted (7) Pedal edema Priority: Secondary Status: Chronic Comments: Acute on chronic. Started furosemide 20 mg daily as needed at home. Not enough information for a diagnosis of diastolic heart failure with preserved ejection fraction at this time. Follow-up outpatient. - Discharge Medications Prescriptions: Furosemide [Lasix] 20 mg PO DAILY PRN #30 tab PRN Reason: Edema Home Medications: Aspirin [Lo-Dose Aspirin EC] 81 mg PO DAILY 09/27/16 [History] Atorvastatin [Lipitor] 40 mg PO HS 09/27/16 [History] Esomeprazole Magnesium [Nexium] 40 mg PO DAILY 09/27/16 [History] Insulin Degludec [Tresiba Flextouch U-100] 134 unit SQ QAM 09/27/16 [History] Lisinopril-HCTZ 10-12.5 [Prinzide 10-12.5] 1 tab PO DAILY 09/27/16 [History] Metformin HCl [Glucophage] 1,000 mg PO DAILY 09/27/16 [History] Paroxetine HCl [Paxil] 10 mg PO QPM 09/27/16 [History] Pioglitazone [Actos] 45 mg PO DAILY 09/27/16 [History] Furosemide [Lasix] 20 mg PO DAILY PRN #30 tab 09/29/16 [Rx] Allergies/Adverse Reactions: Allergies clarithromycin [From Biaxin] Allergy (Verified 09/27/16 14:45) Swelling of Lip/Tongue/Throat Procedures/tests Complete & Pending: Procedures Performed prior 72 hours Category Date Time Status CL Cardiac Catheterization [CL] Routine [place] 09/29/16 08:00 Completed Date of admission: 09/27/16 17:28 Primary care physician: Kalpana Frank, Consults: 09/27/16 19:07 Consult to Cardiology [CONS] Routine Comment: Consulting Provider: Cardiology Dolores Reason for Consult: Patient has recent admission for chest pain. During this admission she underwent a nuclear stress test was negative for ischemia. However , upon discharge Dr. Yoo second for the patient that if chest pain should return she return to the ED. She presented today to the emergency department with worsening chest pain with increasing intensity now chest pressure radiating to left arm. Call Completed: No Discharging clinician: Linda Miranda Anticipated date of discharge: 09/29/16 - Patient Status Disposition: Home, Self-Care Condition: Fair Functional capacity at discharge: independent ambulation Overall status at discharge: patient is back to baseline - Discharge Instructions Follow Up With: Kalpana Frank MD [Primary Care Provider] - 10/06/16 11:40 am Pato Bernal [Provider Group] Additional Instructions: Follow-up with primary care provider as scheduled, follow up with cardiology as scheduled - Diet and Activity Activity: increase activity as tolerated Diet: diabetic diet, low fat, low cholesterol, low salt diet Hospital course: Ms. Palm is a 51 year old female with past medical history of diabetes, hyperlipidemia, hypertension, hysterectomy, cholecystectomy. Patient presented to the emergency department chief complaint of increasing chest pain and new midsternally located chest pressure with radiation to her left arm. Patient was discharged from this hospital on the day prior to presentation when she was admitted for chest pain with a thorough workup that was completed. 2 days prior to presentation, patient had a nuclear stress test that was abnormal but low risk with a preserved ejection fraction so the patient was sent home. Patient was advised to return to the emergency department should her chest pain returned prompting her presentation this visit. Workup in the emergency department unremarkable. No ECG changes other than mild ST depression in aVF and lead 2. Chest x-ray negative. Patient was admitted to the hospitalist service for further evaluation and management. Troponins were negative 3. Patient had intermittent bouts of chest pressure while admitted. She also appeared to be quite anxious. She was seen and evaluated by cardiology who elected to proceed with a left heart catheter. There were no interventions indicated during the left heart catheter. Patient denied chest pain on day of discharge. She had pedal edema during this admission and was started on when necessary low-dose furosemide at home. Not enough information for formal diagnosis of diastolic heart failure with preserved ejection fraction at this time. She is discharged home in stable condition with close outpatient follow- up recommended. ITS Impressions Chest X-Ray 09/27/16 15:05 IMPRESSION: No acute abnormality detected. D/ / Mahendra Walls MD / Mahendra Walls MD Interpreting Provider: Mahendra Walls MD Exercise Nuclear Stress Date of Study: 09/26/2016 Impression: Exercise ECG is negative for ischemia. Gated EF = 73%. Small size, mild intensity, mildy reversible apical anterior and apex perfusion defect. Although I suspect this is probably artifact, ischemia cannot be excluded given mild reversibility. - Time Spent with Patient Total time spent providing and/or coordinating discharge services: - Constitutional Vitals: Temp Pulse Resp BP Pulse Ox 97.8 F 62 16 102/63 96 09/29/16 10:02 09/29/16 11:02 09/29/16 11:02 09/29/16 11:02 09/29/16 11:02 General appearance: Present: A&O X 3, morbidly obese, pleasant, no acute distress, answers questions appropriately - Head Head exam: Present: atraumatic, normocephalic - Eye Eye exam: Present: PERRL, conjuntiva pink, sclera anicteric Pupils: Present: PERRL - Neck Neck exam general surgery: Present: supple, trachea midline. Absent: lymphadenopathy - Respiratory Respiratory exam: Present: CTAB. Absent: accessory muscle use, rales, respiratory distress, rhonchi, wheezes - Cardiovascular Cardiovascular exam: Present: RRR, +S1, +S2. Absent: diastolic murmur, gallop, rubs, systolic murmur - GI/Abdominal GI/Abdominal exam: Present: normal bowel sounds, soft, no peritoneal signs. Absent: distended, tenderness - Extremities Exam Extremities exam: Present: pedal edema, warm, radial pulses palpable and symmetrical. Absent: calf tenderness, cyanotic - Neurological Exam Neurological exam: Present: alert, CN II-XII intact, normal gait, oriented X3, no focal deficits, strengths equal and symetr throughout. Absent: pronater drift, facial droop, speech deficit - Skin Skin exam: Present: dry, intact, pallor, warm
== END 2016-09-29 15:15 | disposition home or self-care (01) ==
LOC: 3BNU 14:41 → EMEROO 14:41 → 3BNU 18:30
PROVIDERS: ADMIT Internal Medicine Endocrinology, Diabetes & Metabolism; ATTEND Nurse Practitioner Family